=== PATIENT | male | born 1990 | race Caucasian/White ===

== ENCOUNTER 2016-08-15 15:07 | Emergency (ER) | payer MEDICAID ==
[~2016-08-15] VITALS: Ht 175.3 cm; Wt 70.0 kg
[~2016-08-15 15:07] MED LIST: ACET325T14 PO; ASPI-496 PO; BACL-19 PO; CRAN1CAP5 PO; FESO8TAB PO; FLONASE; GUAI-42 PO; LACT1CAP24 PO; LORA10CA PO; MIDO5TAB PO; MULT-486 PO; NITROPASTE; ONDA4TAB7 PO; OXYC5CAP4 PO; POLY17PO5 PO; POTA25TA4 PO; PREG50CA PO; SERT50TA PO; ZINC50CA PO; bactrim
[2016-08-15 17:45] VITALS: BP 91/54
== END 2016-08-15 17:52 | disposition home or self-care (01) ==
LOC: ED 16:18
DX: K60.2 Anal fissure, unspecified (principal); G82.50 Quadriplegia, unspecified
CPT/HCPCS: 99283

== ENCOUNTER → 2016-10-23 | Outpatient (CLI) | payer MEDICAID ==
[~2016-10-23] MED LIST changes: +OXYC5CAP2 PO; -OXYC5CAP4 PO
== END | disposition home or self-care (01) ==
LOC: CFH 13:25
PROVIDERS: ATTEND Internal Medicine
DX: N21.0 Calculus in bladder (principal)
CPT/HCPCS: 74000